=== PATIENT | female | born 1955 | race African-American/Black ===

== ENCOUNTER → 2018-09-10 | Outpatient (CLI) | payer OTHER ==
--- NOTE | 2018-09-10 10:17 | PCVCIMAG ---
APPROVED REPORT Study performed: 09/10/2018 09:29:20 Exam: Stress Echocardiogram Indication: Hyperlipidemia, Hypertension, Dyspnea Patient Location: Echo lab Stress Nurse: Estefani Bowie RN Status: routine Ht: 5 ft 4 in HR: 68 bpm BP: 130/80 mmHg Rhythm: NSR Procedure The patient underwent an Exercise Stress Test using the Paxton Protocol. Blood pressure, heart rate, and EKG were monitored. An Echocardiogram was performed by ordnance engineering technician in four stages in quad fashion. At peak stress, four selected images were obtained and placed side by side with resting images for comparison. Stress Test Details Stress Test: Exercise stress testing was performed using a Paxton protocol. HR Resting HR: 68 bpmMax Heart Rate (APMHR): 155 bpm Max HR Achieved: 157 bpmTarget HR (85% APMHR): 131 bpm % of APMHR: 101 Recovery HR: 86 bpm HR response to stress: Normal HR response to stress BP Resting BP: 130/80 mmHg Max BP: 180/88 mmHg Recovery BP: 130/78 mmHg BP response to stress: Normal blood pressure response to stress. ECG Resting ECG: Sinus Rhythm Stress ECG: Sinus Rhythm ST Change: Normal Maximum ST Deviation: 0 mm Arrhythmia: None Recovery ECG: Sinus Rhythm Recovery ST Change: Normal Recovery ST Deviation: 0 mm Recovery Arrhythmia: VPC Clinical Reason for Termination: Maximal effort Exercise duration: 7 min 41 sec Highest Stage Achieved: Stage 3: 3.4 mph at 14% grade. Exercise capacity: 10.10 METs Overall Exercise Capacity for Age: Normal Angina Score: None Stress ECG Conclusion Clinical: Non-ischemic ECG: Non-ischemic Gee Treadmill Score is 7.0 which is Low risk. Pre-Stress Echo The resting Echocardiogram showed normal left ventricular contractility with an estimated Ejection Fraction of about 55-60%. Normal wall motion in all segments on baseline images. Post-Stress Echo The stress Echocardiogram showed normal left ventricular contractility with an estimated Ejection Fraction of about 60-65%. Normal augmentation of wall motion in all segments on post stress images. Clinical No clinical or ECG evidence for ischemia. Conclusion Clinical Response: Non-ischemic Exercise Capacity: Average Stress ECG Response: Non-ischemic Stress Echo Images: Non-ischemic The left ventricle is normal in size and wall thickness in both the rest and stress images. Normal stress echocardiogram with maximal exercise stress. Trace pericardial effusion Other Information Study Quality: Good <Conclusion> The left ventricle is normal in size and wall thickness in both the rest and stress images. Normal stress echocardiogram with maximal exercise stress. Trace pericardial effusion
== END | disposition home or self-care (01) ==
LOC: PCVCIMAG 09:23
PROVIDERS: ATTEND Family Medicine
DX: I10 Essential (primary) hypertension (principal); R06.00 Dyspnea, unspecified; E78.5 Hyperlipidemia, unspecified
CPT/HCPCS: 93325; 93351